=== PATIENT | male | born 1955 | race Caucasian/White ===

== ENCOUNTER 2022-05-03 02:03 | Emergency (ER) | payer MEDICARE, SELFPAY ==
[2022-05-03 02:03] VITALS: BP 133/75; PULSE 64; RESP 16; TEMP 36.4; O2SAT 95; BMI 28.8
--- NOTE | 2022-05-03 02:04 | XRR_ITS ---
PROCEDURE INFORMATION: Exam: XR Chest Exam date and time: 05/03/2022 2:05 AM Age: 66 years old Clinical indication: Sternal or substernal pain; Patient HX: C/O substernal chest pain; Additional info: Cp TECHNIQUE: Imaging protocol: Radiologic exam of the chest. Views: 1 view. COMPARISON: No relevant prior studies available. FINDINGS: Lungs: No consolidation. Mild left basilar platelike atelectasis. Mild bilateral chronic interstitial changes. Pleural spaces: No pleural effusion. No pneumothorax. Heart/Mediastinum: No cardiomegaly. Bones/joints: No acute fracture. XR/XR chest 1V portable 31812 IMPRESSION: No acute cardiopulmonary findings.
--- NOTE | 2022-05-03 02:04 | ECG_ITS ---
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 Measurements Intervals [place] Rate: 61 P: 34 [place]: 188 QRS: 39 QRSD: 97 T: 64 QT: 412 QTc: 418 Interpretive Statements SINUS RHYTHM NONSPECIFIC T-WAVE ABNORMALITY No previous ECG available for comparison Electronically Signed On 05-03-2022 8:37:26 SPECIAL EDUCATION MATH TEACHER by Cassandra Naik M.D. [id number]
--- NOTE | 2022-05-03 02:07 | ED_ITS ---
HPI - Chest Pain General: Chief Complaint: Chest Pain Stated Complaint: CP Time Seen by Provider: 05/03/22 02:03 Source: patient and EMS Mode of arrival: EMS Limitations: no limitations History of Present Illness: 66-year-old male states that he has been having some intermittent chest pains over the last week he states that tonight it woke him up from sleep which it was an 8 out of 10 substernal he states it is improved he received nitro in route along with aspirin he states pain is currently 1 out of 10 denies any dyspnea currently denies any nausea denies any diaphoresis no history of heart disease. Associated symptoms: Deny abdominal pain, dyspnea, fever(s), nausea or vomiting Review of Systems Const: Denies: fever(s), chills, body aches or change in appetite Eyes: Denies: blurry vision or eye discomfort ENMT: Denies: throat pain or dental pain Card: Reports: chest pain Resp: Denies: dyspnea GI: Denies: abdominal pain, nausea, vomiting or diarrhea : Denies: dysuria Musc: Denies: neck pain or back pain Skin/Breast: Denies: rash Neuro: Denies: headache(s) Psych: Denies: depression Calvin/Lymph: Denies: easy bruising All/Imm: Denies: urticaria PFSH ED PFSH: Medical History (Updated 05/03/22 @ 04:24 by Pio Butler MD) Hypertension Social History (Updated 05/03/22 @ 02:07 by Pio Butler MD) Substance/Drug Use: never Physical Exam Const: COMMON NORMALS: no acute distress, patient oriented x3 and healthy appearing HENMT: COMMON NORMALS: normocephalic and atraumatic HEAD & SCALP: normocephalic and atraumatic Eye: COMMON NORMALS: Equal, round and reactive pupils present and EOMs intact bilaterally PUPIL: Yes Equal, round and reactive pupils present Neck/C-Spine: COMMON NORMALS: full ROM and supple Chest: COMMONS NORMALS: normal inspection of the chest and normal palpation of entire chest wall Resp: COMMON NORMALS: normal respiratory effort, No retractions, No use of accessory muscles and clear to auscultation bilaterally AUSCULTATION: clear to auscultation bilaterally Cardio: COMMON NORMALS: regular rate, regular rhythm and No murmurs present (Cardio) RATE: regular rate RHYTHM: regular rhythm GI: COMMON NORMALS: Normal to inspection, nondistended, normoactive bowel sounds present, Soft to palpation, non-tender and no masses PALPATION: Yes Soft to palpation Extremity: COMMON NORMALS: normal to inspection and full ROM Neuro: COMMON NORMALS: patient oriented x3, moves all extremities and no focal motor deficits Psych: COMMON NORMALS: mental status grossly normal, Normal thought process present and cooperative THOUGHT PROCESS: Normal thought process present Skin: COMMON NORMALS: no rashes or lesions noted and no wounds GENERAL SKIN EXAM: no rashes or lesions noted Course Vital Signs: Vital signs: Vital Signs Temperature 97.5 F L 05/03/22 02:03 Pulse Rate 58 L 05/03/22 03:39 Respiratory Rate 20 H 05/03/22 03:39 Blood Pressure 115/71 05/03/22 03:39 Pulse Oximetry 95 05/03/22 03:39 Oxygen Delivery Me thod 05/03/22 03:39 MDM - Chest Pain Medical Decision Making Patient presents for chest pain atypical in nature has been going on for roughly a week he is well-appearing here has been pain-free his EKGs and troponins are normal we will get him follow-up with cardiology he is return if worsening. Lab Data 05/03/22 02:17 05/03/22 02:17 Radiology Impressions Chest X-Ray 05/03/22 02:04 IMPRESSION: No acute cardiopulmonary findings. Laboratory Results WBC 5.9 10^3/uL (4.0-10.0) 05/03/22 02:17 RBC 4.63 10^6/uL (4.1-5.3) 05/03/22 02:17 Hgb 13.8 g/dL (11.7-16.6) 05/03/22 02:17 Hct 42.1 % (42.0-52.0) 05/03/22 02:17 MCV 90.9 fl (80-94) 05/03/22 02:17 MCH 29.8 pg (28.0-34.0) 05/03/22 02:17 MCHC 32.8 g/dL (30.0-36.0) 05/03/22 02:17 RDW 13.3 % (12.1-15.1) 05/03/22 02:17 Plt Count 256 10^3/cmm (130-400) 05/03/22 02:17 MPV 9.9 fL (7.4-10.4) 05/03/22 02:17 Neut % (Auto) 55.1 % 05/03/22 02:17 Lymph % (Auto) 32.2 % 05/03/22 02:17 Marshall % (Auto) 7.8 % 05/03/22 02:17 Eos % (Auto) 4.3 % 05/03/22 02:17 Baso % (Auto) 0.3 % 05/03/22 02:17 Neut # (Auto) 3.23 10^3/uL (1.8-7.7) 05/03/22 02:17 Lymph # (Auto) 1.9 10^3/uL (0.8-4.8) 05/03/22 02:17 Marshall # (Auto) 0.5 10^3/uL (0.2-0.9) 05/03/22 02:17 Eos # (Auto) 0.3 10^3/uL (0.0-0.8) 05/03/22 02:17 Baso # (Auto) 0.0 10^3/uL (0.0-0.1) 05/03/22 02:17 Nucleated RBC % (auto) 0 % 05/03/22 02:17 Nucleated RBCs # 0.0 /100WBC 05/03/22 02:17 Sodium 142 mmol/L (136-145) 05/03/22 02:17 Potassium 3.5 mmol/L (3.5-5.1) 05/03/22 02:17 Chloride 103 mmol/L (98-107) 05/03/22 02:17 Carbon Dioxide 27 mmol/L (22-29) 05/03/22 02:17 Anion Gap 15.5 (5-19) 05/03/22 02:17 BUN 19 mg/dL (8-23) 05/03/22 02:17 Creatinine 1.2 mg/dL (0.7-1.2) 05/03/22 02:17 GFR Calculation 60.6 mL/min (90-130) L 05/03/22 02:17 Glucose 109 mg/dL (65-115) 05/03/22 02:17 Calculated Osmolality 297 mOsm/kg (285-295) H 05/03/22 02:17 Calcium 9.3 mg/dL (8.5-10.5) 05/03/22 02:17 Total Bilirubin 0.3 mg/dL (0.15-1.2) 05/03/22 02:17 AST 14 U/L (0-40) 05/03/22 02:17 ALT 19 U/L (0-41) 05/03/22 02:17 Alkaline Phosphatase 65 U/L (40-130) 05/03/22 02:17 Troponin T Baseline 11 ng/L (0-15) 05/03/22 02:17 Troponin T 120 Minute 9.30 ng/L (0-15) 05/03/22 03:40 Total Protein 6.2 g/dL (6.6-8.7) L 05/03/22 02:17 Albumin 4.3 g/dL (3.5-5.2) 05/03/22 02:17 Globulin 1.9 g/dL (1.3-4.6) 05/03/22 02:17 EKG Data EKG 1: I personally reviewed and interpreted this EKG as follows: EKG interpretation date: 05/03/22 EKG interpretation time: 02:11 Interpretation: nsr hr [address] or t wave abnormalities qrs 97 qtc 416 Discharge Plan Discharge Patient Disposition: Home Clinical Impression: Chest pain Discharge Orders: Discharge ED (Routine); Ordered 05/03/22 Ordered By: Pio Butler Referrals: Cassandra Naik MD [Physician] - 1-3 days Discharge Diet: Advance as tolerated Discharge Activity: Resume usual activity Patient Instructions: Chest Pain (ED) Coding Level of Care Code ED Tax Accountant for Chg Fwd Exam Comprehensive
[2022-05-03 02:23] LABS: Basophils % 0.3 %; Eosinophils # 0.3 10^3/uL (0.0-0.8); Eosinophils % 4.3 %; Hematocrit 42.1 % (42.0-52.0); Hemoglobin 13.8 g/dL (11.7-16.6); Lymphocytes # 1.9 10^3/uL (0.8-4.8); Lymphocytes % 32.2 %; Mean Corpuscular HGB Conc 32.8 g/dL (30.0-36.0); Mean Corpuscular Hemoglobin 29.8 pg (28.0-34.0); Mean Corpuscular Volume 90.9 fl (80-94); Mean Platelet Volume 9.9 fL (7.4-10.4); Monocytes # 0.5 10^3/uL (0.2-0.9); Monocytes % 7.8 %; Neutrophils # 3.23 10^3/uL (1.8-7.7); Neutrophils % 55.1 %; Nucleated Red Blood Cells % 0 %; Platelet Count 256 10^3/cmm (130-400); Red Blood Count 4.63 10^6/uL (4.1-5.3); Red Cell Distribution Width 13.3 % (12.1-15.1); White Blood Count 5.9 10^3/uL (4.0-10.0)
[2022-05-03 02:42] VITALS: BP 133/75; PULSE 60; RESP 14; O2SAT 94
[2022-05-03 02:45] LABS: Troponin(5th) Baseline 11 ng/L (0-15)
[2022-05-03 02:47] LABS: Alanine Aminotransferase 19 U/L (0-41); Albumin Level 4.3 g/dL (3.5-5.2); Alkaline Phosphatase 65 U/L (40-130); Anion Gap 15.5 (5-19); Aspartate Amino Transferase 14 U/L (0-40); Blood Urea Nitrogen 19 mg/dL (8-23); Calcium 9.3 mg/dL (8.5-10.5); Carbon Dioxide 27 mmol/L (22-29); Chloride 103 mmol/L (98-107); Globulin 1.9 g/dL (1.3-4.6); Glomerular Filtration Rate 60.6 mL/min (90-130); Glucose 109 mg/dL (65-115); Osmolality Calculated 297 mOsm/kg (285-295); Potassium 3.5 mmol/L (3.5-5.1); Sodium 142 mmol/L (136-145); Total Bilirubin 0.3 mg/dL (0.15-1.2); Total Protein 6.2 g/dL (6.6-8.7)
[2022-05-03 03:39] VITALS: BP 115/71; PULSE 58; RESP 20; O2SAT 95
--- NOTE | 2022-05-03 03:47 | ECG_ITS ---
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 Measurements Intervals [place] Rate: 57 P: 30 [place]: 182 QRS: 40 QRSD: 99 T: 62 QT: 425 QTc: 417 Interpretive Statements SINUS BRADYCARDIA Compared to ECG 05/03/2022 02:11:50 Sinus rhythm no longer present T-wave abnormality no longer present Electronically Signed On 05-03-2022 8:39:11 PANTOGRAPH I ENGRAVER by Cassandra Naik M.D. [id number]
[2022-05-03 04:36] VITALS: BP 118/69; PULSE 61; RESP 17; O2SAT 94
[2022-05-03 05:01] LABS: Troponin 5 2HR Delta -1.7 ABS# (0-10)
--- NOTE | 2022-05-03 10:28 | DCPLANNER ---
Addendum entered by Enedina Magana 06/20/22 09:02: Patient had a follow up appointment scheduled with heart care - patient did attend appointment Addendum entered by Enedina Magana 05/03/22 15:22: Patient has a follow up appointment scheduled for Sunday, June 19, 2022 at 2:[address] Lao at [facility]. Clinic will call patient with appointment information. Original Note: truck terminal manager had message to schedule a follow up appointment for patient with cardiology. truck terminal manager sent patients information to the front office staff at [facility]. Patients information will be printed and reviewed. Clinic will call patient with appointment information.
== END 2022-05-03 04:39 | disposition home or self-care (01) ==
PROVIDERS: Emergency Provider Emergency Medicine
DX: R07.9 Chest pain, unspecified (principal); I10 Essential (primary) hypertension
CPT/HCPCS: 71045; 80053; 84484; 85025; 93005; 99285

== ENCOUNTER → 2022-06-19 14:30 | Outpatient (BNVA) | payer MEDICARE, SELFPAY | PROVIDERS: Visit Provider Internal Medicine Cardiovascular Disease | DX: R07.9 Chest pain, unspecified (principal); E78.5 Hyperlipidemia, unspecified; I10 Essential (primary) hypertension | CPT/HCPCS: 99204 ==

== ENCOUNTER 2022-08-02 11:59 | Outpatient (CLI) | payer MEDICARE, SELFPAY ==
--- NOTE | 2022-08-02 | ECG_ITS ---
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 Interpretive Statements NAME OF STUDY: TREADMILL STRESS ECHOCARDIOGRAM INDICATION: Chest Pain PROCEDURE: At the baseline, the patient's blood pressure was 136/73 with a heart rate of 68. The baseline electrocardiogram showed normal sinus rhythm with diffuse nonspecific T wave changes. The patient exercised for 8 minutes and 49 seconds on a standard Gil protocol. Patient attained a maximum heart rate of 140 beats per minute(90% of the maximum predicted heart rate) with a blood pressure at the peak exercise of 205/71 mm Hg. The EKG at the peak exercise revealed no significant changes. Patient did not have any chest pain or any significant EKG changes with the exercise During the recovery phase, there were no new changes. Blood pressure at the end of the recovery phase was 173/61 mm Hg with a heart rate of 85 per minute. Echocardiographic pictures were taken at the baseline, immediately following the peak exercise and during the recovery phase. CONCLUSION: 1. Normal EKG response to treadmill exercise 2. No exercise-induced chest pain or cardiac arrhythmia 3. Fair exercise tolerance, attained a maximum of 13.5 METs 4. Please see separate report for the echocardiographic response to exercise. Electronically Signed On 08-07-2022 20:16:35 CDT by Tori Lao M.D. [id number]
[2022-08-02 12:06] VITALS: BMI 29.5
--- NOTE | 2022-08-02 12:18 | USCV_ITS ---
Raymon Carlos Age: 66 Gender: M : 1955 Exam Date: 08/02/2022 12:26 Ordering Phys: Tori Lao MD ([email or web address]) Technologist: Ronald Montes Exam Location: [facility] Indication: cp Rhythm: Sinus Patient History: Cardiac Medications: Medications in past 24 hours: Contrast: Stress Results Protocol: Gil Total dose(mL): Exercise Duration (min:sec): METS: Resting HR: Resting BP: / Peak HR: Peak BP: / Max Predicted HR: 154 % Max Predicted HR Target HR: 131 Double Product: Stress Summary: BP Response: Reason for Termination: Cardiac Symptoms: ECG Analysis Resting ECG: Please see separate report Stress ECG: Please see separate report Arrhythmia: Please see separate report MEASUREMENTS (Male/Female) Normal Values FINDINGS The baseline echocardiogram revealed normal LV size and ejection fraction. Segmental wall motion analysis revealing no gross wall motion normalities. The mitral valve morphology appears to be normal. Left atrium appears to be of normal size. No pericardial effusion. At the peak exercise, there is good augmentation of all the segments. No exercise-induced wall motion normalities. During the recovery phase, there were no new changes CONCLUSIONS 1. Normal echocardiographic response to exercise. 2. No significant coronary ischemia, based on above findings Dr Tori Lao MD FACC (Electronically Signed) Final Date: 06 Aug 2022 09:27 S
[2022-08-02 13:10] VITALS: BP 181/58; PULSE 90
== END 2022-08-02 12:00 | disposition home or self-care (01) ==
LOC: CDL 12:03
PROVIDERS: PCP Family Medicine; Visit Provider Internal Medicine Cardiovascular Disease
DX: R07.9 Chest pain, unspecified (principal)
CPT/HCPCS: 93017; 93350

== ENCOUNTER → 2022-09-27 15:40 | Outpatient (BNVA) | payer MEDICARE, SELFPAY | PROVIDERS: PCP Family Medicine; Visit Provider Nurse Practitioner Family | DX: J06.9 Acute upper respiratory infection, unspecified (principal) | CPT/HCPCS: 71046 ==

== ENCOUNTER → 2022-10-10 10:05 | Outpatient (BNVA) | payer MEDICARE, SELFPAY | PROVIDERS: PCP Family Medicine; Visit Provider Internal Medicine Cardiovascular Disease | DX: R07.89 Other chest pain (principal); E78.5 Hyperlipidemia, unspecified; I10 Essential (primary) hypertension; R05.9 Cough, unspecified | CPT/HCPCS: 99213 ==

== ENCOUNTER → 2023-04-11 10:09 | Outpatient (BNVA) | payer MEDICARE, SELFPAY | PROVIDERS: PCP Family Medicine; Visit Provider Dermatology | DX: L82.1 Other seborrheic keratosis (principal); D22.5 Melanocytic nevi of trunk; L91.8 Other hypertrophic disorders of the skin; D23.71 Other benign neoplasm of skin of right lower limb, including hip; L57.0 Actinic keratosis | CPT/HCPCS: 17000; 99203 ==

== ENCOUNTER → 2023-07-01 14:16 | Outpatient (BNVA) | payer MEDICARE, SELFPAY | PROVIDERS: PCP Family Medicine; Visit Provider Internal Medicine Cardiovascular Disease | DX: R07.89 Other chest pain (principal); I10 Essential (primary) hypertension; E78.5 Hyperlipidemia, unspecified; R61 Generalized hyperhidrosis; F17.220 Nicotine dependence, chewing tobacco, uncomplicated | CPT/HCPCS: 99213 ==

== ENCOUNTER → 2024-02-18 14:57 | Outpatient (BNVA) | payer MEDICARE, SELFPAY | PROVIDERS: PCP Family Medicine; Visit Provider Nurse Practitioner Family | DX: L82.1 Other seborrheic keratosis (principal); L81.4 Other melanin hyperpigmentation; D22.5 Melanocytic nevi of trunk; L91.8 Other hypertrophic disorders of the skin; L57.8 Other skin changes due to chronic exposure to nonionizing radiation; L57.0 Actinic keratosis | CPT/HCPCS: 17000; 99213 ==

== ENCOUNTER 2024-03-22 10:12 | Emergency (ER) | payer MEDICARE, SELFPAY ==
[2024-03-22 10:24] VITALS: BP 155/90; PULSE 63; RESP 18; TEMP 36.7; O2SAT 97; BMI 30.8
--- NOTE | 2024-03-22 10:59 | ED_ITS ---
HPI - Extremity Problem General: Chief complaint: Extremity Problem,Nontraumatic Stated complaint: nreve problem left bakc/shoulder Time Seen by Provider: 03/22/24 10:49 History of Present Illness: 68-year-old man presents emergency room with upper back and arm pain. He says been going on for about 2 weeks and has gotten worse. He was seen in an urgent care and started on some steroid. He says that has not helped and he actually feels worse. No weakness or sensory deficits of the left arm just pain that radiates from his upper back into the arm. No injuries. No fever. Related Data Home Medications Medication Instructions Recorded Confirmed amlodipine 5 mg tablet 5 mg PO DAILY 06/19/22 01/28/23 atorvastatin 40 mg tablet 40 mg PO DAILY 06/19/22 01/28/23 hydrochlorothiazide 25 mg tablet 25 mg PO DAILY 06/19/22 01/28/23 olmesartan 40 mg tablet 40 mg PO DAILY 06/19/22 01/28/23 Previous Rx's Medication Instructions Recorded nitroglycerin 0.4 mg sublingual 0.4 mg sublingual Q5M PRN chest 06/19/22 tablet pain 30 days #30 tabs cyclobenzaprine 10 mg tablet 10 mg PO Q8H PRN muscle spasm #20 03/22/24 tabs hydrocodone 5 mg-acetaminophen 325 1 tab PO Q6H PRN pain #20 tabs 03/22/24 mg tablet polyethylene glycol 3350 17 17 g PO DAILY #510 grams 03/22/24 gram/dose oral powder (Miralax) Allergies Allergy/AdvReac Type Severity Reaction Status Date / Time No Known Allergies Allergy Verified 07/01/23 15:11 Review of Systems Narrative: Constitutional symptoms: Negative except as documented in HPI. Skin symptoms: Negative except as documented in HPI. Eye symptoms: Negative except as documented in HPI. ENMT symptoms: Negative except as documented in HPI. Respiratory symptoms: Negative except as documented in HPI. Cardiovascular symptoms: Negative except as documented in HPI. Gastrointestinal symptoms: Negative except as documented in HPI. Genitourinary symptoms: Negative except as documented in HPI. Musculoskeletal symptoms: Negative except as documented in HPI. Neurologic symptoms: Negative except as documented in HPI. Psychiatric symptoms: Negative except as documented in HPI. Endocrine symptoms: Negative except as documented in HPI. [facility] ED PFSH: Medical History Night sweats Tobacco dependence chewing Minor depression Screening for colon cancer Screening for skin cancer Hyperlipidemia Hx of renal calculi Seasonal allergies Hypertension Surgical History Hx of inguinal hernia surgery Family History Brother Stroke Denies family history of Clotting disorder Anesthesia complication Bleeding disorder Social History Smoking and tobacco/nicotine status: former use of tobacco/nicotine Quit status (tobacco/nicotine): has quit using Former quit date comment: 20 years ago Alcohol intake: current Alcohol intake frequency: holidays/special occasions only Substance/Drug Use: never Household members: spouse Physical Exam Narrative: EXAM NARRATIVE: General: Alert, no acute distress. Skin: warm and dry Head: Normocephalic Neck: Trachea midline Eye: Extraocular movements are intact. Ears, nose, mouth and throat: Oral mucosa moist Respiratory: Respirations are non-labored Musculoskeletal: Normal ROM Neurological: Alert and oriented, No focal neurological deficit observed. Psychiatric: Cooperative, appropriate mood & affect. Course Vital Signs: Vital signs: Vital Signs Temperature 98.0 F 03/22/24 10:24 Pulse Rate 63 03/22/24 10:24 Respiratory Rate 18 03/22/24 10:24 Blood Pressure 155/90 03/22/24 10:24 Pulse Oximetry 97 03/22/24 10:24 Oxygen Delivery Me thod Room Air 03/22/24 10:24 MDM - Extremity (Nontraumatic) Medical Decision Making Assessment and plan: Radiculopathy ?Stuart and IM Norflex in the emergency room - Discharged home - Discussed plan with patient. Answered any questions. - Evaluation and treatment of this problem were appropriate in the emergency setting. No radiology studies performed this visit Discharge Plan Discharge Patient Disposition: Home Clinical Impression: Radiculopathy Condition: Stable Prescriptions: New cyclobenzaprine 10 mg tablet 10 mg PO Q8H PRN (Reason: muscle spasm) Qty: 20 0RF hydrocodone-acetaminophen 5-325 mg tablet 1 tab PO Q6H PRN (Reason: pain) Qty: 20 0RF polyethylene glycol 3350 [Miralax] 17 gram/dose powder 17 g PO DAILY Qty: 510 0RF Rx Instructions: Take 1 scoop daily while taking pain medications. No Action olmesartan 40 mg tablet 40 mg PO DAILY amlodipine 5 mg tablet 5 mg PO DAILY hydrochlorothiazide 25 mg tablet 25 mg PO DAILY atorvastatin 40 mg tablet 40 mg PO DAILY nitroglycerin 0.4 mg tablet, sublingual 0.4 mg sublingual Q5M PRN (Reason: chest pain) 30 Days Qty: 30 3RF Rx Instructions: until response; do not exceed 3 doses per episode Discharge Orders: Discharge ED (Routine); Ordered 03/22/24 Ordered By: Estephanie Torres Referrals: Genaro Castro II, MD [Primary Care Provider] - Discharge Diet: Usual diet Discharge Activity: Increase activity as tolerated Patient Instructions: Opioid Safety, Pain Management Activity Restrictions/Additional Instructions: Thank you for choosing [facility] for your healthcare needs today. Please realize this is an emergency room and that we are providing you with a medical screening exam and this may not be complete and all inclusive of all the testing and or work up that you may need to determine your ailment or severity of your illness. You have been screened and evaluated and felt safe for discharge. Health conditions do change or evolve sometimes and as such it is important that you follow up with your Primary Doctor to be re checked, 3-5 days is a general good time frame for follow up. You are always welcome to return to the ED for re assessment if your symptoms are worsening or you have new concerns Coding Level of Care Code ED Flooring Machine Feeder for Amada Pinto
[2024-03-22] MEDS: orphenadrine 30 mg/mL Inj 2 mL 60 MG IM (11:01)
[2024-03-22] MEDS: HYDROcodone-acetaminophen 10-325 mg Tablet 1 TAB PO (11:02)
[2024-03-22 11:05] VITALS: BP 144/85; PULSE 63; O2SAT 94
== END 2024-03-22 11:18 | disposition home or self-care (01) ==
PROVIDERS: Emergency Provider Emergency Medicine; PCP Family Medicine
DX: M54.10 Radiculopathy, site unspecified (principal); Z87.891 Personal history of nicotine dependence; E78.5 Hyperlipidemia, unspecified; I10 Essential (primary) hypertension
CPT/HCPCS: 96372; 99284; J2360

== ENCOUNTER → 2025-02-18 14:56 | Outpatient (BNVA) | payer MEDICARE, SELFPAY | PROVIDERS: PCP Family Medicine; Visit Provider Nurse Practitioner Family | DX: D18.01 Hemangioma of skin and subcutaneous tissue (principal); L57.8 Other skin changes due to chronic exposure to nonionizing radiation; L82.0 Inflamed seborrheic keratosis; Z78.9 Other specified health status; R20.8 Other disturbances of skin sensation; L53.8 Other specified erythematous conditions; L57.0 Actinic keratosis | CPT/HCPCS: 17000; 17110; 99213 ==